=== PATIENT | female | born 1990 | race Caucasian/White ===

== ENCOUNTER 2016-07-22 19:44 | Emergency (ER) | payer OTHER ==
[2016-07-22 19:58] VITALS: BP 114/75; PULSE 76; TEMP 98.2; BMI 29.0
[2016-07-22] MEDS ORDERED: ONDANSETRON 4 MG/2 ML VIAL IVPUSH ONE (20:30)
[2016-07-22] MEDS ORDERED: SODIUM CHLORIDE 0.9% 1000 ML INFUS.BAG IV ONE (20:30)
[2016-07-22] MEDS ORDERED: ALBUTEROL SO4 2.5/IPRATROPIUM 0.5 INH SOL 3 ML VIAL.NEB. NEB ONE ×3 (20:30→20:33)
[2016-07-22] MEDS ORDERED: ONDANSETRON 4 MG/2 ML VIAL ONE (20:33)
--- NOTE | 2016-07-22 20:41 | PDOC ---
History of Present Illness - General Chief Complaint: Nausea/Vomiting Stated Complaint: NAUSEA/VOMITING History Source: Patient Exam Limitations: No Limitations - History of Present Illness Initial Comments: 07/22/16 20:35 patient is a 25-year-old female with no past medical history here with complaints of coughing, sneezing x 1 week, assoc/w body pain. Cough is productive of sputum. Today she started to have nonpleuritic, nonreproducible, upper chest pain sharp 7/10 with no aggravating or alleviating factors. States she has been unable to take a deep breath due to the pain. Denies fever, chills , sorethroat, dysuria. She has not taken any meds for the pain. LMP 06/09/16 last for 22 days. No OCP, no recent travel, no leg selling, Famx neg for IN/CVA , PE/DVT. PMHX: neg PSocHX; neg cig, etoh, durg PFamHX: non contributory ALL: NKDA GENERAL/CONSTITUTIONAL: [No fever or chills. No weakness. No weight change.] HEAD, EYES, EARS, NOSE AND THROAT: [No change in vision. No ear pain or discharge. No sore throat.] CARDIOVASCULAR: (+) chest pain or shortness of breath.] RESPIRATORY: [No cough, wheezing, or hemoptysis.] GASTROINTESTINAL: [No nausea, vomiting, diarrhea or constipation. No rectal bleeding.] GENITOURINARY: [No dysuria, frequency, or change in urination.] MUSCULOSKELETAL: [No joint or muscle swelling or pain. No neck or back pain.] SKIN AND BREASTS: [No rash or easy bruising.] NEUROLOGIC: [No headache, vertigo, loss of consciousness, or loss of sensation.] PSYCHIATRIC: [No depression or anxiety.] ENDOCRINE: [No increased thirst. No abnormal weight change.] HEMATOLOGIC/LYMPHATIC: [No anemia, easy bleeding, or history of blood clots.] ALLERGIC/IMMUNOLOGIC: [No hives or skin allergy. No latex allergy.] GENERAL: [The patient is awake, alert, and fully oriented, in no acute distress. ] HEAD: [Normal with no signs of trauma.] EYES: [Pupils equal, round and reactive to light, extraocular movements intact, sclera anicteric, conjunctiva clear.] ENT: [Ears normal, nares patent, oropharynx clear without exudates. Moist mucous membranes.] NECK: [Normal range of motion, supple without lymphadenopathy, JVD, or masses.] LUNGS: [Breath sounds equal, clear to auscultation bilaterally. No wheezes, and no crackles., chest wall nontender to palp] HEART: [Regular rate and rhythm, normal S1 and S2 without murmur, rub.] ABDOMEN: [Soft, nontender, normoactive bowel sounds. No guarding, no rebound. No masses.] EXTREMITIES: [Normal range of motion, no edema. No clubbing or cyanosis. No cords, erythema, or tenderness.] NEUROLOGICAL: [Cranial nerves II through XII grossly intact. Normal speech, normal gait.] PSYCH: [Normal mood, normal affect.] SKIN: [Warm, Dry, normal turgor, no rashes or lesions noted.] Past History - Past Medical History Allergies/Adverse Reactions: Allergies Allergy/AdvReac Type Severity Reaction Status Date / Time No Known Allergies Allergy Verified 07/22/16 19:54 Home Medications: Ambulatory Orders Albuterol Sulfate Inhaler - [Ventolin HFA Inhaler -] 2 puff IH Q4H #1 inhaler Disorders: Yes (heavy periods, ) - Reproductive History (#): 1 Para: 1 Cervical CA: No Ectopic : No Endometrial CA: No Therapeutic (s) & number: No Tubal Ligation: No Spontaneous : 0 - Immunization History Immunization Up to Date: Yes - Psycho/Social/Smoking Cessation Hx Anxiety: No Suicidal Ideation: No Smoking Status: No Smoking History: Never smoked Number of Cigarettes Smoked Daily: 0 Hx Alcohol Use: No *Physical Exam - Vital Signs Last Vital Signs Temp Pulse Resp BP Pulse Ox 98.2 F 76 18 114/75 99 07/22/16 19:55 07/22/16 19:55 07/22/16 19:55 07/22/16 19:55 07/22/16 19:55 ED Treatment Course - LABORATORY CBC & Chemistry Diagram: 07/22/16 20:50 07/22/16 20:50 Medical Decision Making - Medical Decision Making 07/22/16 20:49 Patient is a 25 year old with no pmhx c/o coughing, sneezing, body aches x 1 week and today started to have upper chest pain. Symptoms consistent with a viral illness, with chest pain wall pain. will give duonebs, labs, IVF, cxr after neg hcg re-assess Given Tylenol 975mg po for pain 07/22/16 22:20 Given tylenol still c/o pain given toradol 30mg IV labs reviewed not acute finding, cxr neg I discussed the physical exam findings, ancillary test results and final diagnoses with the patient. I answered all of the patient's questions. The patient was satisfied with the care received and felt comfortable with the discharge plan and treatment plan. The Patient agrees to follow up with the primary care physician within 24-72 hours. *DC/Admit/Observation/Transfer Diagnosis at time of Disposition: Chest wall pain Upper respiratory infection Qualifiers: URI type: unspecified viral URI Qualified Code(s): J06.9 - Acute upper respiratory infection, unspecified Diagnosis at time of Disposition: (Ruled Out): Chest pain of unknown etiology - Discharge Dispostion Disposition: HOME Condition at time of disposition: Stable - Prescriptions Prescriptions: Albuterol Sulfate Inhaler - [Ventolin HFA Inhaler -] 2 puff IH Q4H #1 inhaler - Patient Instructions Printed Discharge Instructions: DI for Viral Upper Respiratory Infection -- Adult, DI for Chest Pain Additional Instructions: Your Discharge Instructions: You must call primary care physician within 24 hours to arrange follow-up. Return to the Emergency Department with any new, persistent or worsening symptoms, for fever, chills, SOB, dizziness or any other concerning changes that may occur. Addendum entered and electronically signed by Mark Enriquez 07/23/16 04: 05: Progress Note - Progress Note Progress Note: Patient is PERC neg
[2016-07-22] MEDS ORDERED: ACETAMINOPHEN 325 MG TABLET (FP) ONE (21:02)
[2016-07-22 21:05] LABS: MCHC 32.7 g/dl (32.0-36.0); MEAN CELL VOLUME 79.3 fl (80-96); MEAN PLT VOLUME 8.2 fl (7.5-11.1); PLATELET COUNT 202 K/MM3 (134-434); WHITE BLOOD COUNT 4.5 K/mm3 (4.0-10.0)
[2016-07-22] MEDS ORDERED: ACETAMINOPHEN 325 MG TABLET (FP) PO ONE (21:06)
[2016-07-22 21:29] LABS: ALBUMIN 3.9 g/dl (3.4-5.0); ALK PHOS 75 U/L (45-117); ANION GAP 9 (8-16); BILIRUBIN,TOTAL 0.3 mg/dL (0.2-1.0); CALCIUM 9.3 mg/dL (8.5-10.1); CO2 27 mmol/L (21-32); CREATININE 0.8 mg/dL (0.55-1.02); GLUCOSE,RANDOM 102 mg/dL (74-106); SGOT/AST 38 U/L (15-37); SGPT/ALT 72 U/L (12-78); TOT PROT 7.7 g/dl (6.4-8.2)
[2016-07-22] MEDS ORDERED: KETOROLAC TROMETHAMINE 30 MG/1 ML VIAL IVPUSH PRN (22:11)
[2016-07-22] MEDS ORDERED: KETOROLAC TROMETHAMINE 30 MG/1 ML VIAL ONE (22:12)
== END 2016-07-22 22:43 | disposition home or self-care (01) ==
LOC: JER 19:44
PROC: 3E0F7GC Introduction of Other Therapeutic Substance into Respiratory Tract, Via Natural or Artificial Opening (ICD-10-PCS; principal; 2016-07-22)
PROC: 3E0F7GC Introduction of Other Therapeutic Substance into Respiratory Tract, Via Natural or Artificial Opening (ICD-10-PCS; 2016-07-22)
PROC: 3E0333Z Introduction of Anti-inflammatory into Peripheral Vein, Percutaneous Approach (ICD-10-PCS; 2016-07-22)
PROC: 3E033GC Introduction of Other Therapeutic Substance into Peripheral Vein, Percutaneous Approach (ICD-10-PCS; 2016-07-22)
DX: J06.9 Acute upper respiratory infection, unspecified (principal)
CPT/HCPCS: 36415; 71020-TC; 80053; 84702; 85027; 87804; 99283-25

== ENCOUNTER 2016-07-23 17:22 | Emergency (ER) | payer OTHER ==
[2016-07-23 17:44] VITALS: BP 117/73; PULSE 61; TEMP 98; BMI 29.0
[2016-07-23] MEDS ORDERED: ALBUTEROL SO4 2.5/IPRATROPIUM 0.5 INH SOL 3 ML VIAL.NEB. NEB ONE ×2 (18:26→18:30)
[2016-07-23] MEDS ORDERED: predniSONE 20 MG TABLET (UD) ONE (18:26)
[2016-07-23] MEDS ORDERED: predniSONE 20 MG TABLET (UD) PO ONE (18:30)
--- NOTE | 2016-07-23 18:31 | PDOC ---
History of Present Illness - General Chief Complaint: Shortness of Breath Stated Complaint: SOB/CHEST PAIN Time Seen by Provider: 07/23/16 18:30 History Source: Patient Exam Limitations: No Limitations - History of Present Illness Initial Comments: 07/23/16 18:32 Patient is return to the emergency department for continued shortness of breath , wheezing and pleuritic chest pain. States was seen here last night prescribed an albuterol inhaler and given Motrin for the chest pain but states was unable to sleep last night, shortness of breath has worsened. Patient states has fevers and chills, son was ill with upper respiratory infection last week and thinks may be the same. Influenza testing and most of the laboratory work negative taken last night. 07/23/16 18:34 07/23/16 18:35 Timing/Duration: reports: constant, getting worse Severity: reports: moderate Associated Symptoms: reports: chest pain/soreness, cough, dizziness, nasal congestion, nasal drainage, shortness of breath, wheezing. denies: fever/chills Past History - Travel Traveled outside of the country in the last 30 days: No Close contact w/someone who was outside of country & ill: No - Past Medical History Allergies/Adverse Reactions: Allergies Allergy/AdvReac Type Severity Reaction Status Date / Time No Known Allergies Allergy Verified 07/23/16 17:44 Home Medications: Ambulatory Orders Albuterol Sulfate Inhaler - [Ventolin HFA Inhaler -] 2 puff IH Q4H #1 inhaler Azithromycin [Zithromax -] 250 mg PO UTDICT #6 tab 07/23/16 Prednisone [Deltasone -] 20 mg PO BID #8 tablet 07/23/16 Disorders: Yes (heavy periods, ) - Reproductive History (#): 1 Para: 1 Cervical CA: No Ectopic : No Endometrial CA: No Therapeutic (s) & number: No Tubal Ligation: No Spontaneous : 0 - Immunization History Immunization Up to Date: Yes - Psycho/Social/Smoking Cessation Hx Anxiety: No Suicidal Ideation: No Smoking Status: No Smoking History: Never smoked Number of Cigarettes Smoked Daily: 0 Hx Alcohol Use: No Drug/Substance Use Hx: No Respiratory Specific PMHX - Complaint Specific PMHX Bronchitis: No Pneumonia: No Review of Systems - Review of Systems Able to Perform ROS?: No Is the patient limited Yoruba proficient: No Constitutional: Yes: Symptoms Reported, See HPI, Chills, Fever, Malaise HEENTM: Yes: Symptoms Reported, Nose Congestion. No: Recent change in vision, Nose Pain Respiratory: Yes: Symptoms reported, See HPI, Cough, Wheezing Integumentary: Yes: Symptoms Reported Neurological: Yes: Symptoms reported *Physical Exam - Vital Signs Last Vital Signs Temp Pulse Resp BP Pulse Ox 98.0 F 61 16 117/73 100 07/23/16 17:41 07/23/16 17:41 07/23/16 17:41 07/23/16 17:41 07/23/16 17:41 - Physical Exam General Appearance: Yes: Nourished, Appropriately Dressed, Apparent Distress, Mild Distress HEENT: positive: CAMRYN, TMs Normal (congested but landmarks easily visualized), Nasal Congestion, Rhinorrhea. negative: Pharynx Normal Neck: positive: Supple, Lymphadenopathy (R), Lymphadenopathy (L). negative: Tender Respiratory/Chest: negative: Chest Tender, Lungs Clear (tight inspiratory and expiratory breath sounds, cough provoked with deep inspiratory effort), Normal Breath Sounds, Labored Respiration, Wheezing Cardiovascular: positive: Regular Rhythm Gastrointestinal/Abdominal: positive: Normal Bowel Sounds, Soft. negative: Tender Musculoskeletal: positive: Normal Inspection Extremity: positive: Normal Capillary Refill. negative: Normal Range of Motion Integumentary: positive: Normal Color, Dry, Warm, Pale Neurologic: positive: sack sewer machine II-XII NML intact, Fully Oriented, Alert, Normal Mood/ Affect, Normal Response, Motor Strength 5/5 Progress Note - Progress Note Progress Note: Upper respiratory infection, unresolved with simple albuterol. Will add prednisone for inflammatory effects and Zithromax to treat any bacterial component. Medical Decision Making - Medical Decision Making 07/23/16 19:03 much improved after DuoNeb, 60 mg of prednisone. EKG reveals normal sinus rhythm/on his bradycardia in the high 50s with no evidence of ischemia or arrhythmia. *DC/Admit/Observation/Transfer Diagnosis at time of Disposition: Upper respiratory infection Qualifiers: URI type: unspecified URI Qualified Code(s): J06.9 - Acute upper respiratory infection, unspecified - Discharge Dispostion Disposition: HOME Condition at time of disposition: Stable Admit: No - Prescriptions Prescriptions: Prednisone [Deltasone -] 20 mg PO BID #8 tablet Azithromycin [Zithromax -] 250 mg PO UTDICT #6 tab - Patient Instructions Printed Discharge Instructions: DI for Acute Bronchitis Additional Instructions: Rest, drink lots of fluids: Teas, water, soups, Pedialyte Saltwater gargles Steamy showers/seem to face break up mucus Avoid contact with others until fevers and cough resolved Lots of handwashing and good hygiene Continue [id number] medications for symptomatic relief Tylenol or Motrin for fever and pain Continue albuterol pump's 2 puffs 4 times a day for 3 days Continue prednisone 40 mg for the next 4 days Complete Zithromax course as directed Followup with private physician in one to 2 days as needed Return to emergency department for worsened symptoms, fevers, dehydration - Post Discharge Activity Work/School Note: Back to Work
--- NOTE | 2016-07-29 10:29 | EKG ---
Test Reason : Blood Pressure : / mmHG Vent. Rate : 057 BPM Atrial Rate : 057 BPM P-R Int : 126 ms QRS Dur : 092 ms QT Int : 412 ms P-R-T Axes : 062 055 062 degrees QTc Int : 401 ms SINUS BRADYCARDIA OTHERWISE NORMAL ECG WHEN COMPARED WITH ECG OF 07-NOV-2008 17:28, NO SIGNIFICANT CHANGE WAS FOUND Confirmed by MARTÍN ARREDONDO MD ([id number]) on 07/29/2016 10:29:07 AM Referred By: Confirmed By:MARTÍN ARREDONDO MD
== END 2016-07-23 19:32 | disposition home or self-care (01) ==
LOC: JERFT 17:22
PROC: 3E0F7GC Introduction of Other Therapeutic Substance into Respiratory Tract, Via Natural or Artificial Opening (ICD-10-PCS; principal; 2016-07-23)
DX: J06.9 Acute upper respiratory infection, unspecified (principal)
CPT/HCPCS: 93005; 93010; 99281-25

== ENCOUNTER 2017-03-09 17:48 | Emergency (ER) | payer OTHER ==
[2017-03-09 17:52] VITALS: BP 123/67; PULSE 81; TEMP 98.4; BMI 29.0
[2017-03-09] MEDS ORDERED: KETOROLAC TROMETHAMINE 60 MG/2 ML VIAL IM ONE (18:40)
[2017-03-09] MEDS ORDERED: KETOROLAC TROMETHAMINE 60 MG/2 ML VIAL ONE (18:44)
--- NOTE | 2017-03-09 18:45 | PDOC ---
History of Present Illness - General Chief Complaint: Toothache Stated Complaint: TOOTH PAIN Time Seen by Provider: 03/09/17 18:19 History Source: Patient Exam Limitations: No Limitations - History of Present Illness Initial Comments: 03/09/17 18:41 Patient is a 26-year-old female, no significant medical history currently on no medication presents for evaluation of right lower third molar pain. She reports being at work pain started and noticed swelling, has an appointment for dental on Saturday. Patient is afebrile, no difficulty swallowing, no visual disturbance. Past Medical History: Denies. Allergies: No known allergies Medications: None Family History: Non-contributory Social History: Denies smoking, alcohol use, or IVDU Review of Systems GENERAL/CONSTITUTIONAL: No fever or chills. No weakness. No weight change. HEAD, EYES, EARS, NOSE AND THROAT: No change in vision. No ear pain or discharge. No sore throat. Pain to the right posterior third bottom molar. CARDIOVASCULAR: No chest pain or shortness of breath. RESPIRATORY: No cough, wheezing, or hemoptysis. GASTROINTESTINAL: No nausea, vomiting, diarrhea or constipation. No rectal bleeding. GENITOURINARY: No dysuria, frequency, or change in urination. MUSCULOSKELETAL: No joint or muscle swelling or pain. No neck or back pain. SKIN : No rash or easy bruising. Swelling to right side of face NEUROLOGIC: No headache, vertigo, loss of consciousness, or loss of sensation. HEMATOLOGIC/LYMPHATIC: No anemia, easy bleeding, or history of blood clots. No lymphadenopathy ALLERGIC/IMMUNOLOGIC: No hives or skin allergy. No latex allergy. Physical Exam: GENERAL: The patient is awake, alert, and fully oriented, in no acute distress. EYES: Pupils equal, round and reactive to light, extraocular movements intact, sclera anicteric, conjunctiva clear. ENT: Ears normal, nares patent, oropharynx clear without exudates. Moist mucous membranes. No uvula deviation. Pack to right posterior lower third molar. No visualized abscess noted. NECK: Normal range of motion, supple without lymphadenopathy, JVD, or masses. LUNGS: Breath sounds equal, clear to auscultation bilaterally. No wheezes, and no crackles. HEART: Regular rate and rhythm, normal S1 and S2 without murmur, rub or gallop. ABDOMEN: Soft, nontender, normoactive bowel sounds. No guarding, no rebound. No masses. No bruising or abrasions SKIN: Warm, Dry, normal turgor, no rashes or lesions noted. Edema to right side of face. Past History - Past Medical History Allergies/Adverse Reactions: Allergies Allergy/AdvReac Type Severity Reaction Status Date / Time No Known Allergies Allergy Verified 03/09/17 17:52 Home Medications: Ambulatory Orders Oxycodone HCl/Acetaminophen [Percocet 5-325 mg Tablet] 1 - 2 tab PO Q6H #20 tab MDD 8 03/09/17 Penicillin V Potassium [Pen Vee K -] 500 mg PO QID #40 tablet 03/09/17 Disorders: Yes (heavy periods, ) Other medical history: NONE - Reproductive History (#): 1 Para: 1 Cervical CA: No Ectopic : No Endometrial CA: No Therapeutic (s) & number: No Tubal Ligation: No Spontaneous : 0 - Immunization History Immunization Up to Date: Yes - Suicide/Smoking/Psychosocial Hx Smoking Status: No Smoking History: Never smoked Number of Cigarettes Smoked Daily: 0 Hx Alcohol Use: Yes (SOCIAL) Drug/Substance Use Hx: No *Physical Exam - Vital Signs Last Vital Signs Temp Pulse Resp BP Pulse Ox 98.4 F 81 20 123/67 99 03/09/17 17:49 03/09/17 17:49 03/09/17 17:49 03/09/17 17:49 03/09/17 17:49 Medical Decision Making - Medical Decision Making 03/09/17 19:14 Patient with impacted right third molar, Toradol given while in emergency room with good result will DC patient home on penicillin, Percocet for pain, follow- up with dental as soon as possible given information about urgent dental on [address], she verbalized understanding. Follow-up as instructed and return to emergency Department with any fever, any redness or swelling to right side of face difficulty swallowing, breathing, or any other concerns. *DC/Admit/Observation/Transfer Diagnosis at time of Disposition: Dental impaction - Discharge Dispostion Disposition: HOME Condition at time of disposition: Good - Prescriptions Prescriptions: Penicillin V Potassium [Pen Vee K -] 500 mg PO QID #40 tablet Oxycodone HCl/Acetaminophen [Percocet 5-325 mg Tablet] 1 - 2 tab PO Q6H #20 tab MDD 8 - Patient Instructions Printed Discharge Instructions: DI for Impacted Tooth Additional Instructions: Warm salt water gargles If any increased redness, fever, swelling, or signs of infection return to ER Motrin for mild pain - Post Discharge Activity Forms/Work/School Notes: Back to Work
== END 2017-03-09 19:30 | disposition home or self-care (01) ==
LOC: JERFT 17:48
PROC: 3E0233Z Introduction of Anti-inflammatory into Muscle, Percutaneous Approach (ICD-10-PCS; principal; 2017-03-09)
DX: K01.1 Impacted teeth (principal)
CPT/HCPCS: 99281-25

== ENCOUNTER 2017-04-05 20:42 | Emergency (ER) | payer OTHER ==
[2017-04-05 20:47] VITALS: BP 125/57; PULSE 69; TEMP 99; BMI 30.7
--- NOTE | 2017-04-05 21:06 | PDOC ---
History of Present Illness - General Chief Complaint: Vaginal Bleeding Stated Complaint: VAG. BLEEDING Time Seen by Provider: 04/05/17 20:53 History Source: Patient - History of Present Illness Initial Comments: 04/05/17 21:09 Patient is a 26 y.o. (1 spontaneous + 1 elective ) who presents with acute onset of vaginal bleed. Patient states she was at work when she noticed a gush of blood. Patient endorse associated abdominal cramping and denies any shortness of breath, lightheadedness or palpitations. Patient states she was evaluated at [facility] earlier this week at which time she was told she was . Surgical: C/S NKDA Social: denies cigarettes, social alcohol, denies recreational drugs PMD: None Past History - Past Medical History Allergies/Adverse Reactions: Allergies Allergy/AdvReac Type Severity Reaction Status Date / Time No Known Allergies Allergy Verified 04/05/17 20:47 Home Medications: Ambulatory Orders NK [No Known Home Medication] 04/05/17 Disorders: Yes (heavy periods, ) - Reproductive History (#): 1 Para: 1 Cervical CA: No Ectopic : No Endometrial CA: No Therapeutic (s) & number: No Tubal Ligation: No Spontaneous : 0 - Immunization History Immunization Up to Date: Yes - Suicide/Smoking/Psychosocial Hx Smoking Status: No Smoking History: Never smoked Number of Cigarettes Smoked Daily: 0 Hx Alcohol Use: Yes (SOCIAL) Drug/Substance Use Hx: No Review of Systems - Review of Systems Constitutional: No: Chills, Fever Respiratory: No: Cough, Shortness of Breath Cardiac (ROS): No: Chest Pain, Lightheadedness, Palpitations ABD/GI: Yes: Abdominal cramping. No: Constipated, Diarrhea, Nausea, Vomiting : No: Burning, Dysuria All Other Systems: Reviewed and Negative *Physical Exam - Vital Signs Last Vital Signs Temp Pulse Resp BP Pulse Ox 99.0 F 69 18 125/57 99 04/05/17 20:43 04/05/17 20:43 04/05/17 20:43 04/05/17 20:43 04/05/17 20:43 - Physical Exam General Appearance: Yes: Nourished, Appropriately Dressed Respiratory/Chest: positive: Lungs Clear, Normal Breath Sounds Cardiovascular: positive: S1, S2 Female Pelvic Exam: positive: cervical os closed, vaginal bleeding (Streaks of dark red blood observed in vaginal vault) ED Treatment Course - LABORATORY CBC & Chemistry Diagram: 04/05/17 20:51 04/05/17 20:51 Medical Decision Making - Medical Decision Making 04/05/17 21:12 Patient is a 26 y.o. female @ unknown gestation who presents with acute onset of vaginal bleed + abdominal cramping. Initial DDx is for spontaneous . PLAN: 1. CBC 2. TVUS 3. Pelvic Exam 04/06/17 00:19 B-HCG 47,494.5, consistent with 5-6 week as well as patient's LMP. Pelvic exam shows closed cervical os with a small amount of dark red blood in vaginal vault. Bedside TVUS shows IUP with no free fluid or adnexal masses. Patient awaiting TVUS and signed out to Dr. Valdivia (Resident). *DC/Admit/Observation/Transfer Diagnosis at time of Disposition: Vaginal bleeding before 22 weeks gestation
[2017-04-05 21:18] LABS: BASOPHIL 0.5 % (0-2.0); MCH 27.3 pg (25.7-33.7); MCHC 33.2 g/dl (32.0-36.0); MEAN CELL VOLUME 82.1 fl (80-96); MEAN PLT VOLUME 8.8 fl (7.5-11.1); NEUTROPHILS 65.2 % (42.8-82.8); PLATELET COUNT 277 K/MM3 (134-434); RDW 14.7 % (11.6-15.6); WHITE BLOOD COUNT 8.2 K/mm3 (4.0-10.0)
[2017-04-05 21:25] LABS: URINE APPEARANCE CLEAR; URINE BILIRUBIN NEGATIVE (NEGATIVE); URINE BLOOD 3+ (NEGATIVE); URINE COLOR STRAW; URINE GLUCOSE (UA) NEGATIVE (NEGATIVE); URINE KETONE NEGATIVE (NEGATIVE); URINE NITRITE NEGATIVE (NEGATIVE); URINE PROTEIN NEGATIVE (NEGATIVE); URINE UROBILINOGEN NEGATIVE mg/dL (0.2-1.0)
[2017-04-05] MEDS ORDERED: ACETAMINOPHEN 500 MG TABLET (FP) PO ONE (22:13)
[2017-04-05 22:21] LABS: URINE BACTERIA RARE /hpf (NONE SEEN); URINE MUCUS RARE; URINE RBC 6 /hpf (0-3); URINE WBC 3 /hpf (3-5)
[2017-04-05] MEDS ORDERED: ACETAMINOPHEN 325 MG TABLET (FP) ONE (22:21)
[2017-04-05 22:40] LABS: ALBUMIN 3.8 g/dl (3.4-5.0); ANION GAP 9 (8-16); BILIRUBIN,TOTAL 0.4 mg/dL (0.2-1.0); CALCIUM 8.9 mg/dL (8.5-10.1); CO2 23 mmol/L (21-32); CREATININE 0.8 mg/dL (0.55-1.02); GLUCOSE,RANDOM 77 mg/dL (74-106); SGOT/AST 22 U/L (15-37); SGPT/ALT 29 U/L (12-78); TOT PROT 7.4 g/dl (6.4-8.2)
[2017-04-05 22:56] LABS: ALK PHOS 67 U/L (45-117)
--- NOTE | 2017-04-05 23:50 | PDOC ---
Attending Attestation - Resident Resident Name: Jorge Bhat - HPI HPI: 04/07/17 08:53 Pt presents to the ED complaining of L sided abdominal pain, nausea and vomiting. Denies fever. History of gastric sleeve placement in [place]. - Physicial Exam PE: 04/07/17 08:55 Abdomen is diffusely tender on the left side without guarding or rebound. - Medical Decision Making 04/07/17 08:55 Pt presents to the ED complaining of abdominal pain after gastric sleeve. Abdomen is diffusely tender on the left side. Ct performed to rule out leak or obstruction, and is negative except for ovarian cyst. Patient feels improved. Will discharge home.
--- NOTE | 2017-04-06 03:07 | PDOC ---
*Physical Exam - Vital Signs Last Vital Signs Temp Pulse Resp BP Pulse Ox 99.0 F 69 18 125/57 99 04/05/17 20:43 04/05/17 20:43 04/05/17 20:43 04/05/17 20:43 04/05/17 20:43 - Physical Exam Comments: 04/06/17 03:08 General Appearance: Nourished. No Apparent Distress HEENT: EOMI, CAMRYN. No Pharyngeal Erythema, Tonsillar Exudate, Tonsillar Erythema Neck: No Cervical Lymphadenopathy Respiratory/Chest: Lungs Clear, Normal Breath Sounds. No Crackles, Rales, Rhonchi, Wheezing Cardiovascular: Regular Rhythm, Regular Rate. No Murmur, Gallops, Rubs Gastrointestinal/Abdominal: Normal Bowel Sounds, Soft. No Guarding, Rebound, Tenderness Musculoskeletal: No CVA Tenderness Extremity: Normal Capillary Refill Integumentary: Normal Color, Dry, Warm Neurologic: Fully Oriented, Alert, Normal Mood/Affect, Normal Response, ED Treatment Course - LABORATORY CBC & Chemistry Diagram: 04/05/17 20:51 04/05/17 20:51 - ADDITIONAL ORDERS Additional order review: Laboratory Results 04/05/17 04/05/17 04/05/17 20:51 20:51 20:51 Sodium 135 L Potassium 4.1 Chloride 103 Carbon Dioxide 23 Anion Gap 9 BUN 12 D Creatinine 0.8 Creat Clearance w eGFR > 60 Random Glucose 77 D Calcium 8.9 Total Bilirubin 0.4 D AST 22 D ALT 29 D Alkaline Phosphatase 67 Total Protein 7.4 Albumin 3.8 Beta HCG, Quant 50175.5 Urine Color Straw Urine Appearance Clear Urine pH 6.0 Urine Protein Negative Urine Glucose (UA) Negative Urine Ketones Negative Urine Blood 3+ H Urine Nitrite Negative Urine Bilirubin Negative Urine Urobilinogen Negative Urine RBC 6 Urine WBC 3 Ur Epithelial Cells Rare Urine Bacteria Rare Urine Mucus Rare Blood Type B POSITIVE Antibody Screen Negative 04/05/17 20:51 RBC 4.86 MCV 82.1 MCHC 33.2 RDW 14.7 MPV 8.8 Neutrophils % 65.2 Lymphocytes % 24.1 D Monocytes % 8.2 Eosinophils % 2.0 Basophils % 0.5 - Medications Given in the ED: ED Medications Discontinued Medications Generic Name Dose Route Start Last Admin Trade Name Freq PRN Reason Stop Dose Admin Acetaminophen 1,000 mg 04/05/17 22:13 04/05/17 22:23 Tylenol - PO 04/05/17 22:14 1,000 mg ONCE ONE Administration Progress Note - Progress Note Progress Note: Received sign out from Dr. Bush. The patient is a 26 year old 6 week female who presented for concerns of vaginal bleeding. Work up has been negative thus far. Pending official US read for intrauterine . Medical Decision Making - Medical Decision Making 04/06/17 03:09 Official US read demonstrates a viable 6 week 5 day old healthy fetus. We are comfortable discharging the patient home at this time with OB follow-up within the next 4-5 days. We discussed the results and the plan with the patient who voiced understanding and is agreeable with the plan. *DC/Admit/Observation/Transfer Diagnosis at time of Disposition: Vaginal bleeding before 22 weeks gestation - Discharge Dispostion Disposition: HOME Condition at time of disposition: Good Admit: No - Patient Instructions Printed Discharge Instructions: DI for Vaginal Bleeding During Additional Instructions: Please return to the ER if you experience concerning or worsening symptoms including worsening bleeding or abdominal cramping. Please call to schedule an earlier follow up appointment with your machine umbrella tipper to discuss your ER visit. You have been provided with a copy of your ultrasound results that you should take to your appointment.
[2017-04-06 10:12] LABS: URINE LEUK ESTERASE Negative (NEGATIVE)
== END 2017-04-06 03:19 | disposition home or self-care (01) ==
LOC: JER 20:42
DX: O20.8 Other hemorrhage in early pregnancy (principal); Z3A.01 Less than 8 weeks gestation of pregnancy
CPT/HCPCS: 36415; 76817-TC; 80053; 81003; 81015; 84702; 85025; 86850; 86900; 86901; 99282-25

== ENCOUNTER 2017-06-14 21:53 | Emergency (ER) | payer OTHER ==
[2017-06-14 22:00] VITALS: BP 115/75; PULSE 66; TEMP 98.2; BMI 29.7
--- NOTE | 2017-06-14 22:19 | PDOC ---
History of Present Illness - General Chief Complaint: Back Pain Stated Complaint: BACK PAIN Time Seen by Provider: 06/14/17 22:11 History Source: Patient Exam Limitations: No Limitations - History of Present Illness Initial Comments: 06/14/17 22:11 CHIEF COMPLAINT: [Right flank pain] HISTORY OF PRESENT ILLNESS:[26 ]-year-old [female with no significant medical history, presents to the ER with reproducable with right flank pain which started yesterday. Describes pain as stabbing, constant with intermittent sharp pains. 01/24. Took 800 mg of Motrin at 6 pm with no resolve of symptoms. ],[ No fever, denies injury or lifting heavy objects, no hisotry of renal colic. Nonradiating pain, no neurosensory deficits, no bowel or bladder difficulty incontinence or urinary retention, no saddle anesthesia, no footdrop. No history of IVDU or history of cancer. No urinary symptoms. LMP: Current] REVIEW OF SYSTEMS: GENERAL: Afebrile, denies any weakness RESPIRATORY: No cough, wheezing, or hemoptysis. CARDIAC: No chest pain or shortness of breath MUSCULOSKELETAL: Pain to right flank. SKIN : No erythema, no bruising, no deformity. GI/: Denies any abdominal pain, no urinary difficulty, incontinence or urinary retention. RECTAL: Denies any difficulty this A.m. NEUROLOGICAL: Denies any numbness or tingling. No neurosensory deficits. PHYSICAL EXAM: GENERAL: The patient is awake, alert, and fully oriented, in no acute distress. RESPIRATORY: Lungs clear bilaterally, no rhonchi wheezes or crackles CARDIAC: S1-S2 audible, no murmur rub or gallop MUSCULOSKELETAL: Pain to right flank, nonradiating, no tingling or sensory deficit. Less than 2 second cap refill, +4 popliteal and pedal pulses. No direct CVA tenderness, pain just inferior to CVA on the right. GI/: Abdomen soft, nontender, nondistended. No rebound tenderness. No masses palpable. MUSCULOSKELETAL: No spinal point tenderness. Normal reflexive and no deficits to sensation or strength. RECTAL: [Deferred patient with no neurological findings] SKIN: Warm, Dry, normal turgor, no erythema, no edema no bruising. 06/14/17 22:59 06/16/17 10:30 Past History - Past Medical History Allergies/Adverse Reactions: Allergies Allergy/AdvReac Type Severity Reaction Status Date / Time No Known Allergies Allergy Verified 06/15/17 01:34 Home Medications: Ambulatory Orders Ketorolac Tromethamine [Toradol] 10 mg PO TID #10 tablet 06/15/17 Disorders: Yes (heavy periods, ) - Reproductive History (#): 1 Para: 1 Cervical CA: No Ectopic : No Endometrial CA: No Therapeutic (s) & number: No Tubal Ligation: No Spontaneous : 0 - Immunization History Immunization Up to Date: Yes - Suicide/Smoking/Psychosocial Hx Smoking Status: No Smoking History: Never smoked Number of Cigarettes Smoked Daily: 0 Hx Alcohol Use: Yes (SOCIAL) Drug/Substance Use Hx: No *Physical Exam - Vital Signs Last Vital Signs Temp Pulse Resp BP Pulse Ox 98.2 F 66 20 115/75 100 06/14/17 21:57 06/14/17 21:57 06/14/17 21:57 06/14/17 21:57 06/14/17 21:57 Medical Decision Making - Medical Decision Making 06/14/17 22:44 A/P: Patient here for evaluation of right flank pain sudden onset denies any trauma or injury. I have sent urinalysis, urine and urine culture. Patient was initially triaged to [facility]. After review of the history of present illness and physical examination by Nurse Practitioner, the patient was transferred to the main ED because area is closing awaiting results, The patient is medically stable for transfer. Case discussed with Dr. Lindsey *DC/Admit/Observation/Transfer Diagnosis at time of Disposition: Flank pain - Discharge Dispostion Disposition: HOME Condition at time of disposition: Stable - Prescriptions Prescriptions: Ketorolac Tromethamine [Toradol] 10 mg PO TID #10 tablet - Referrals Referrals: Harrison Claros MD [Staff Physician] - Igor Panchal MD [Staff Physician] - - Patient Instructions Printed Discharge Instructions: DI for Flank Pain Additional Instructions: Please follow-up with your primary care physician or Dr. Encarnacion Follow with the orthopedic surgeon: Dr. Claros Tylenol or Motrin as needed for pain Prescription: Toradol 10 mg one tablet by mouth twice a day only as needed for severe pain. Do not take Motrin while you're taking Toradol Return back to the emergency department for severe/persistent or worsening symptoms - Post Discharge Activity Forms/Work/School Notes: Back to Work
[2017-06-14] MEDS ORDERED: ONDANSETRON 4 MG TABLET PO ONE (22:30)
[2017-06-14] MEDS ORDERED: ONDANSETRON *ODT* 4 MG TABLET ONE (22:35)
--- NOTE | 2017-06-14 22:56 | PDOC ---
*Physical Exam - Vital Signs Last Vital Signs Temp Pulse Resp BP Pulse Ox 98.2 F 66 20 115/75 100 06/14/17 21:57 06/14/17 21:57 06/14/17 21:57 06/14/17 21:57 06/14/17 21:57 <Juan Lindsey - Last Filed: 06/14/17 22:56> - Vital Signs Last Vital Signs Temp Pulse Resp BP Pulse Ox 98.2 F 66 20 115/75 100 06/14/17 21:57 06/14/17 21:57 06/14/17 21:57 06/14/17 21:57 06/14/17 21:57 <Omar Guo - Last Filed: 06/15/17 01:10> ED Treatment Course - Medications Given in the ED: ED Medications Discontinued Medications Generic Name Dose Route Start Last Admin Trade Name Freq PRN Reason Stop Dose Admin Ondansetron HCl 4 mg 06/14/17 22:30 06/14/17 22:36 Zofran - PO 06/14/17 22:31 4 mg ONCE ONE Administration Oxycodone/Acetaminophen 1 combo 06/14/17 22:30 06/14/17 22:52 Percocet 5/325 - PO 06/14/17 22:31 1 combo ONCE ONE Administration <Juan Lindsey - Last Filed: 06/14/17 22:56> - Medications Given in the ED: ED Medications Discontinued Medications Generic Name Dose Route Start Last Admin Trade Name Freq PRN Reason Stop Dose Admin Ondansetron HCl 4 mg 06/14/17 22:30 06/14/17 22:36 Zofran - PO 06/14/17 22:31 4 mg ONCE ONE Administration Oxycodone/Acetaminophen 1 combo 06/14/17 22:30 06/14/17 22:52 Percocet 5/325 - PO 06/14/17 22:31 1 combo ONCE ONE Administration <Omar Guo - Last Filed: 06/15/17 01:10> Medical Decision Making - Medical Decision Making 06/15/17 01:10 Further care of this patient endorsed to ROSEMARIE Fraga. <Omar Guo - Last Filed: 06/15/17 01:10> *DC/Admit/Observation/Transfer - Attestations Physician Attestion: 06/14/17 22:56 I, Dr. Juan Lindsey, attest that this document has been prepared under my direction and personally reviewed by me in its entirety. I further attest, that it accurately reflects all work, treatment, procedures and medical decision -making performed by me. <Juan Lindsey - Last Filed: 06/14/17 22:56> <Omar Guo - Last Filed: 06/15/17 01:10> - Referrals Referrals: Juan Lindsey MD [Primary Care Provider] - - Patient Instructions - Post Discharge Activity
[2017-06-15 01:14] LABS: URINE APPEARANCE TURBID; URINE BILIRUBIN NEGATIVE (NEGATIVE); URINE BLOOD 3+ (NEGATIVE); URINE COLOR YELLOW; URINE GLUCOSE (UA) NEGATIVE (NEGATIVE); URINE KETONE TRACE (NEGATIVE); URINE LEUK ESTERASE TRACE (NEGATIVE); URINE NITRITE NEGATIVE (NEGATIVE)
[2017-06-15 01:19] LABS: URINE PROTEIN 2+ (NEGATIVE)
[2017-06-15 01:21] LABS: EPI CELLS RARE /HPF (FEW); URINE HYALINE CAST 27 /lpf; URINE MUCUS MANY; YEAST FEW
[2017-06-15] MEDS ORDERED: KETOROLAC TROMETHAMINE 60 MG/2 ML VIAL IM ONE (02:09)
[2017-06-15] MEDS ORDERED: KETOROLAC TROMETHAMINE 60 MG/2 ML VIAL ONE (02:11)
--- NOTE | 2017-06-15 02:44 | PDOC ---
History of Present Illness - General Chief Complaint: Back Pain Stated Complaint: BACK PAIN Time Seen by Provider: 06/14/17 22:11 History Source: Patient Exam Limitations: No Limitations - History of Present Illness Initial Comments: 06/15/17 02:39 26-year-old female without any medical history presents to the emergency department complaining of right-sided flank pain. HEENT is described as 4/10 dull nonradiating intermittent discomfort without fever, chills, nausea/vomiting , chest pain, shortness of breath, abdominal pains, urinary symptoms: Frequency/ urgency/hesitancy, hematuria. Patient denies any injuries or history of renal colic. The pain is alleviated with rest and exacerbated on certain moving positions. LMP: presently Patient states she was given a Percocet earlier today she does not help the pain. I had ordered Toradol 60 mg IM which alleviated a lot of the pain. Patient refuses CT scan. Patient insists on going home. Patient keeps saying her Wrists in the ambulance bay and wishes to leave. Patient was informed to return back to the emergency department for severe/ persistent or worsening symptoms. Patient agrees with the plan. Past History - Past Medical History Allergies/Adverse Reactions: Allergies Allergy/AdvReac Type Severity Reaction Status Date / Time No Known Allergies Allergy Verified 06/15/17 01:34 Home Medications: Ambulatory Orders Ketorolac Tromethamine [Toradol] 10 mg PO TID #10 tablet 06/15/17 COPD: No Disorders: Yes (heavy periods, ) - Reproductive History (#): 1 Para: 1 Cervical CA: No Ectopic : No Endometrial CA: No Therapeutic (s) & number: No Tubal Ligation: No Spontaneous : 0 - Immunization History Immunization Up to Date: Yes - Suicide/Smoking/Psychosocial Hx Smoking Status: No Smoking History: Never smoked Number of Cigarettes Smoked Daily: 0 Information on smoking cessation initiated: No Hx Alcohol Use: Yes (SOCIAL) Drug/Substance Use Hx: No Substance Use Type: None Review of Systems - Review of Systems Able to Perform ROS?: Yes Comments:: 06/15/17 02:41 CONSTITUTIONAL: Absent: fever, chills, diaphoresis, generalized weakness, malaise, loss of appetite HEENT: Absent: rhinorrhea, nasal congestion, throat pain, throat swelling, difficulty swallowing, mouth swelling, ear pain, eye pain, visual Changes CARDIOVASCULAR: Absent: chest pain, loss of consciousness, palpitations, irregular heart rate, peripheral edema RESPIRATORY: Absent: cough, shortness of breath, dyspnea with exertion, orthopnea, wheezing, stridor, hemoptysis GASTROINTESTINAL: Absent: abdominal pain, abdominal distension, nausea, vomiting, diarrhea, constipation, melena, hematochezia GENITOURINARY: +RIGHT FLANK PAIN Absent: dysuria, frequency, urgency, hesitancy, hematuria, genital pain MUSCULOSKELETAL: Absent: myalgia, arthralgia, joint swelling SKIN: Absent: rash, itching, pallor HEMATOLOGIC/IMMUNOLOGIC: Absent: easy bleeding, easy bruising, lymphadenopathy, frequent infections ENDOCRINE: Absent: unexplained weight gain, unexplained weight loss, heat intolerance, cold intolerance NEUROLOGIC: Absent: headache, focal weakness or paresthesias, dizziness, unsteady gait, seizure, mental status changes, bladder or bowel incontinence PSYCHIATRIC: Absent: anxiety, depression, suicidal or homicidal ideation, hallucinations. Is the patient limited Divehi proficient: No *Physical Exam - Vital Signs Last Vital Signs Temp Pulse Resp BP Pulse Ox 98.2 F 66 20 115/75 100 06/14/17 21:57 06/14/17 21:57 06/14/17 21:57 06/14/17 21:57 06/14/17 21:57 - Physical Exam Comments: 06/15/17 02:42 GENERAL: Well developed, well nourished. Awake and alert. No acute distress. HEENT: Normocephalic, atraumatic. PERRLA, EOMI. No conjunctival pallor. Sclera are non- icteric. Moist mucous membranes. Oropharynx is clear. NECK: Supple. Full ROM. No JVD. Carotid pulses 2+ and symmetric, without bruits. No thyromegaly. No lymphadenopathy. CARDIOVASCULAR: Regular rate and rhythm. No murmurs, rubs, or gallops. Distal pulses are 2+ and symmetric. PULMONARY: No evidence of respiratory distress. Lungs clear to auscultation bilaterally. No wheezing, rales or rhonchi. ABDOMINAL: Soft. Non-tender. Non-distended. No rebound or guarding. No organomegaly. Normoactive bowel sounds. MUSCULOSKELETAL Patient adamantly denies CVA tenderness. Patient states the pain is inside her muscles Normal range of motion at all joints. No bony deformities or tenderness. No CVA tenderness. EXTREMITIES: No cyanosis. No clubbing. No edema. No calf tenderness. SKIN: Warm and dry. Normal capillary refill. No rashes. No jaundice. NEUROLOGICAL: Alert, awake, appropriate. Cranial nerves 2-12 intact. No deficits to light touch and temperature in face, upper extremities and lower extremities. No motor deficits in the in face, upper extremities and lower extremities. Normoreflexic in the upper and lower extremities. Normal speech. Toes are down- going bilaterally. Gait is normal without ataxia. PSYCHIATRIC: Cooperative. Good eye contact. Appropriate mood and affect. ED Treatment Course - ADDITIONAL ORDERS Additional order review: Laboratory Results 06/14/17 06/14/17 22:29 22:29 Urine Color Yellow Urine Appearance Turbid Urine pH 5.0 Ur Specific Greer 1.031 Urine Protein 2+ H Urine Glucose (UA) Negative Urine Ketones Trace H Urine Blood 3+ H Urine Nitrite Negative Urine Bilirubin Negative Urine Urobilinogen 2.0 H Urine WBC (Auto) 158 Urine RBC (Auto) 910 Ur Epithelial Cells Rare Hyaline Casts 27 Urine Mucus Many Urine Yeast Few Urine HCG, Qual Negative - Medications Given in the ED: ED Medications Discontinued Medications Generic Name Dose Route Start Last Admin Trade Name Freq PRN Reason Stop Dose Admin Ketorolac Tromethamine 60 mg 06/15/17 02:09 06/15/17 02:15 Toradol Injection - IM 06/15/17 02:10 60 mg ONCE ONE Administration Ondansetron HCl 4 mg 06/14/17 22:30 06/14/17 22:36 Zofran - PO 06/14/17 22:31 4 mg ONCE ONE Administration Oxycodone/Acetaminophen 1 combo 06/14/17 22:30 06/14/17 22:52 Percocet 5/325 - PO 06/14/17 22:31 1 combo ONCE ONE Administration *DC/Admit/Observation/Transfer Diagnosis at time of Disposition: Flank pain - Discharge Dispostion Disposition: HOME Condition at time of disposition: Stable Admit: No - Prescriptions Prescriptions: Ketorolac Tromethamine [Toradol] 10 mg PO TID #10 tablet - Referrals Referrals: Harrison Claros MD [Staff Physician] - Igor Panchal MD [Staff Physician] - - Patient Instructions Printed Discharge Instructions: DI for Flank Pain Additional Instructions: Please follow-up with your primary care physician or Dr. Encarnacion Follow with the orthopedic surgeon: Dr. Claros Tylenol or Motrin as needed for pain Prescription: Toradol 10 mg one tablet by mouth twice a day only as needed for severe pain. Do not take Motrin while you're taking Toradol Return back to the emergency department for severe/persistent or worsening symptoms - Post Discharge Activity Forms/Work/School Notes: Back to Work
== END 2017-06-15 02:50 | disposition home or self-care (01) ==
LOC: SUPCPDRO 21:53 → JER 21:53 → JERFT 21:53 → JER 06-15 02:50
PROC: 3E0233Z Introduction of Anti-inflammatory into Muscle, Percutaneous Approach (ICD-10-PCS; principal; 2017-06-14)
DX: R10.31 Right lower quadrant pain (principal)
CPT/HCPCS: 81003; 81015; 84703; 87086; 99283-25

== ENCOUNTER 2018-03-25 11:32 | Emergency (ER) | payer OTHER ==
[2018-03-25 11:54] VITALS: BP 113/69; PULSE 69; TEMP 99; BMI 29.0
--- NOTE | 2018-03-25 13:05 | PDOC ---
History of Present Illness - General Chief Complaint: Ear Problem Stated Complaint: EARS/CAN'T HEAR Time Seen by Provider: 03/25/18 12:03 - History of Present Illness Initial Comments: 27-year-old female without comorbidities presents for evaluation of bilateral ear congestion and cerumen impaction. She states this happened to her multiple times in the past she cannot get an ear nose and throat evaluation this week. Congestion is been going on for the last 2 days 03/25/18 13:03 Past History - Past Medical History Allergies/Adverse Reactions: Allergies Allergy/AdvReac Type Severity Reaction Status Date / Time No Known Allergies Allergy Verified 03/25/18 11:51 COPD: No Disorders: Yes (heavy periods, ) - Reproductive History (#): 1 Para: 1 Cervical CA: No Ectopic : No Endometrial CA: No Therapeutic (s) & number: No Tubal Ligation: No Spontaneous : 0 - Immunization History Immunization Up to Date: Yes - Suicide/Smoking/Psychosocial Hx Smoking Status: No Smoking History: Never smoked Number of Cigarettes Smoked Daily: 0 Hx Alcohol Use: Yes (SOCIAL) Drug/Substance Use Hx: No Substance Use Type: None Review of Systems - Review of Systems HEENTM: Yes: See HPI, Ear Pain All Other Systems: Reviewed and Negative *Physical Exam - Vital Signs Last Vital Signs Temp Pulse Resp BP Pulse Ox 99.0 F 69 18 113/69 99 03/25/18 11:52 03/25/18 11:52 03/25/18 11:52 03/25/18 11:52 03/25/18 11:52 - Physical Exam Comments: HEAD: NC/AT EYES: Conjuntiva clear Ears: Bilateral cerumen impaction tympanic membranes not visualized NOSE: No d/c THROAT: Moist mucous membrances, oral pharanx clear, uvula midline NECK: Supple without adenopathy CARDIAC: S1 S2 LUNGS: CTA Full and Equal breath sounds ABDOMEN: Soft NT ND MS: Full ROM in all joints without edema NEUROLOGIC: No gross sensory or motor deficits, NVID SKIN: Normal color and temperature no lesions or rashes 03/25/18 13:04 Medical Decision Making - Medical Decision Making 03/25/18 13:04 Warm water and peroxide solution [id number] was used to irrigate patient's ears after irrigation tympanic membrane was well-visualized canals were normal *DC/Admit/Observation/Transfer Diagnosis at time of Disposition: Cerumen impaction - Discharge Dispostion Disposition: HOME Condition at time of disposition: Stable Decision to Admit order: No - Referrals Referrals: Faisal Sanchez MD [Staff Physician] - - Patient Instructions Printed Discharge Instructions: DI for Cerumen Impaction, Cerumen Impaction Additional Instructions: Return to the emergency room should symptoms worsen or go unresolved. Please follow-up with your nose and throat for further evaluation and treatment options in 2-3 days. - Post Discharge Activity
== END 2018-03-25 13:11 | disposition home or self-care (01) ==
LOC: JERFT 11:32
PROC: 3E1B78Z Irrigation of Ear using Irrigating Substance, Via Natural or Artificial Opening (ICD-10-PCS; principal; 2018-03-25)
PROC: 3E1B78Z Irrigation of Ear using Irrigating Substance, Via Natural or Artificial Opening (ICD-10-PCS; 2018-03-25)
DX: H61.23 Impacted cerumen, bilateral (principal)
CPT/HCPCS: 99281-25

== ENCOUNTER 2018-08-21 09:13 | Emergency (ER) | payer OTHER ==
[2018-08-21 09:23] VITALS: BMI 31.9
--- NOTE | 2018-08-21 09:32 | PDOC ---
History of Present Illness - General Chief Complaint: Shortness of Breath Stated Complaint: S.O.B. Time Seen by Provider: 08/21/18 09:31 - History of Present Illness Initial Comments: 08/21/18 09:32 28 yo female 34 weeks with no significant PMH presents with a complaint of SOB which began upon awakening this morning. She states the SOB is present at rest and is much worse with exertion and that she is only able to stand and walk for a few seconds without beocoming SOB. She endorses feeling warm yesterday but denies any true fevers, chills, chest pain, Abdominal pain, Urinary symptoms, Calf tenderness/swelling/erythema. Of note she states she has had similar episodes of SOB earlier in however they were very short lived and less sever than the current episode. She denies any history of clotting/coagulation disorders in her or her family. She denies any previous clots, and she denies any prior complications in this or her prior . Past History - Past Medical History Allergies/Adverse Reactions: Allergies Allergy/AdvReac Type Severity Reaction Status Date / Time No Known Allergies Allergy Verified 08/21/18 09:20 Home Medications: Ambulatory Orders Vit 108/Iron/Folic AC [ One Tablet] 1 each PO DAILY 08/21/18 COPD: No Disorders: Yes (heavy periods, ) - Reproductive History (#): 1 Para: 1 Cervical CA: No Ectopic : No Endometrial CA: No Therapeutic (s) & number: No Tubal Ligation: No Spontaneous : 0 - Immunization History Immunization Up to Date: Yes - Suicide/Smoking/Psychosocial Hx Smoking Status: No Smoking History: Never smoked Number of Cigarettes Smoked Daily: 0 Hx Alcohol Use: No Drug/Substance Use Hx: No Substance Use Type: None Review of Systems - Review of Systems Able to Perform ROS?: Yes Constitutional: No: Chills, Fever HEENTM: No: Blurred Vision Respiratory: Yes: Shortness of Breath, SOB with Exertion, SOB at Rest. No: Cough, Orthopnea, Stridor, Wheezing, Productive cough, Hemoptysis Cardiac (ROS): No: Chest Pain, Edema, Chest Tightness ABD/GI: No: Constipated, Diarrhea, Nausea, Vomiting : No: Burning, Dysuria, Discharge Musculoskeletal: Yes: Back Pain Neurological: No: Headache, Weakness *Physical Exam - Vital Signs Last Vital Signs Temp Pulse Resp BP Pulse Ox 98.3 F 101 H 20 119/80 98 08/21/18 09:20 08/21/18 09:20 08/21/18 09:20 08/21/18 09:20 08/21/18 09:20 - Physical Exam Comments: 08/21/18 09:32 GEN: A&O, no acute distress HEENT: moist mucus membranes NECK: supple, no lymphadenopathy HEART: Tachycardic, no murmur noted LUNGS: Tachypnic, otherwise CTA b/l, no wheezes or crackles noted ABDOMEN: Soft, nontender, consistent with stated gestational age EXTREMITIES: no calf tenderness/edema/erythema Moderate Sedation - Procedure Monitoring Vital Signs: Procedure Monitoring Vital Signs Temperature 98.3 F 08/21/18 09:20 Pulse Rate 101 H 08/21/18 09:20 Respiratory Rate 20 08/21/18 09:20 Blood Pressure 119/80 08/21/18 09:20 O2 Sat by Pulse Oximetry (%) 98 08/21/18 09:20 ED Treatment Course - LABORATORY CBC & Chemistry Diagram: 08/21/18 10:03 08/21/18 10:03 Medical Decision Making - Medical Decision Making 08/21/18 09:53 28 yo 34 wk female presents with 1 day SOB at rest and worse with exertion. Denies hx of clots or clotting disorder, or calf tenderness/erythema/ edema. CBC, CMP, D-dimer, Coags b/l LE Duplex ordered and will reassess 08/21/18 14:34 CBC, CMP Coags wnl, D-dimer elevated Risks and benefits of CTA discussed with patient who agreed to undergo CTA chest. CTA negative for any PE or pulmonary pathology. Albuterol Nebulizer given without good relief. Saturation has remained stable throughout ED visit. At this point pt is stable for discharge as PE/Cardiac/Pulmonary effusion ruled out. Pt should follow up with OB within one week for further evaluation and management. *DC/Admit/Observation/Transfer Diagnosis at time of Disposition: SOB (shortness of breath) - Discharge Dispostion Disposition: HOME Condition at time of disposition: Stable Decision to Admit order: No - Referrals Referrals: Lexi Blackwell CNM [Certified Nurse [facility]] - - Patient Instructions Printed Discharge Instructions: DI for Shortness of Breath Additional Instructions: You were seen in the emergency department for shortness of breath. Your lab work was normal. After full discussion you agreed that it was best to do a CT scan of your chest with contrast to rule out a clot in your lungs which could have been causing your difficulty breathing. The CT scan did not show any concerning findings. You were given a breathing treatment while you were here. If your symptoms worsen, you should be seen by your doctor or return to the emergency department. You should follow up with your OB within one week. - Post Discharge Activity
[2018-08-21] MEDS ORDERED: LACTATED RINGERS SOLUTION 1000 ML INFUS.BAG IV ONE (09:56)
[2018-08-21 10:42] LABS: BASO % 0.2 % (0-2.0); EOS % 0.7 % (0-4.5); HEMATOCRIT 35.5 % (32.4-45.2); HEMOGLOBIN 12.4 GM/dL (10.7-15.3); MCH 29.4 pg (25.7-33.7); MCHC 34.9 g/dl (32.0-36.0); MEAN CELL VOLUME 84.2 fl (80-96); MEAN PLT VOLUME 8.2 fl (7.5-11.1); MONO % 7.7 % (3.8-10.2); NEUT % 76.4 % (42.8-82.8); PLATELET COUNT 219 K/MM3 (134-434); RBC 4.21 M/mm3 (3.60-5.2); RDW 14.9 % (11.6-15.6); WHITE BLOOD COUNT 9.7 K/mm3 (4.0-10.0)
[2018-08-21 11:06] LABS: INR 1.06 (0.83-1.09); PROTHROMBIN TIME (PATIENT) 12.5 SEC (9.7-13.0)
[2018-08-21 11:11] LABS: ALBUMIN 2.7 g/dl (3.4-5.0); ALK PHOS 113 U/L (45-117); ANION GAP 10 MMOL/L (8-16); BILIRUBIN,TOTAL 0.4 mg/dL (0.2-1); BLOOD UREA NITROGEN 6 mg/dL (7-18); CALCIUM 8.5 mg/dL (8.5-10.1); CHLORIDE 107 mmol/L (98-107); CO2 22 mmol/L (21-32); CREATININE 0.5 mg/dL (0.55-1.3); GLUCOSE,RANDOM 82 mg/dL (74-106); POTASSIUM 3.8 mmol/L (3.5-5.1); SGOT/AST 9 U/L (15-37); SGPT/ALT 12 U/L (13-61); SODIUM 140 mmol/L (136-145); TOT PROT 6.4 g/dl (6.4-8.2)
[2018-08-21] MEDS ORDERED: ALBUTEROL SO4 0.083% IH SOL 2.5 MG/3 ML VIAL.NEB. NEB ONE ×2 (14:06→14:21)
[2018-08-21 16:49] VITALS: BP 120/71; PULSE 136; TEMP 98.2
== END 2018-08-21 16:40 | disposition home or self-care (01) ==
LOC: JER 09:13
PROC: 3E0F7GC Introduction of Other Therapeutic Substance into Respiratory Tract, Via Natural or Artificial Opening (ICD-10-PCS; principal; 2018-08-21)
DX: O26.893 Other specified pregnancy related conditions, third trimester (principal)
CPT/HCPCS: 36415; 71275-TC; 80053; 85025; 85379; 85610; 93970-TC; 99282-25

== ENCOUNTER 2018-09-24 14:05 | Inpatient (IN) | payer OTHER ==
[~2018-09-24 14:05] MED LIST: CITRIC ACID/SODIUM CITRATE 30 ML UNIT-DOSE CUP PO ONE; ELECTROLYTE-148 SOLN 1,000 ML IV SCH
[2018-09-24] MEDS ORDERED: ELECTROLYTE-148 SOLN 1,000 ML IV SCH ×2 (14:35→15:15)
[2018-09-24 14:51] VITALS: BMI 34.2
[2018-09-24] MEDS ORDERED: CITRIC ACID/SODIUM CITRATE 30 ML UNIT-DOSE CUP PO ONE (15:12)
--- NOTE | 2018-09-24 15:36 | HP ---
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: No: Alzheimer's, CVA, Dementia, Migraine, Multiple Sclerosis, Peripheral Neuropathy, Parkinson's, Seizure, Syncope, TIA, Vertigo, Other ...: 4 ...Para: 1 ...Term: 1 ...: 0 ...Spon : 1 ...Induced : 1 ...Multiple Gestation: 0 ...EDC by [facility]: 10/01/18 Heme/Onc: Yes: Anemia Infectious Disease: No: AIDS, C-Diff, Herpes Zoster, HIV, MRSA, STD's, Tuberculosis, VREF, Other Psych: No: Addictions, Anxiety, Bipolar, Depression, Panic, Psychosis, Schizophrenia, Other Musculoskeletal: No: Bursitis, Chronic low back pain, Hemiparesis, Hemiplegia, Osteoarthritis, Paraplegia, Other Rheumatology: No: Fibromyalgia, Gout, Lupus, Rheumatoid Arthritis, Sarcoidosis, Vasculitis, Other ENT: No: Allergic Rhinitis, Sinusitis, Other - Past Surgical History Past Surgical History: Yes: Hx Myomectomy: No Hx Transabdominal Cerclage: No - Smoking History Smoking history: Never smoked Have you smoked in the past 12 months: No Aproximately how many cigarettes per day: 0 - Alcohol/Substance Use Hx Alcohol Use: No History of Substance Use: reports: None - Social History Usual Living Arrangement: Yes: Alone ADL: Independent History of Recent Travel: No Home Medications - Allergies Allergies/Adverse Reactions: Allergies Allergy/AdvReac Type Severity Reaction Status Date / Time No Known Allergies Allergy Verified 09/24/18 14:52 - Home Medications Home Medications: Ambulatory Orders Vit 108/Iron/Folic AC [ One Tablet] 1 each PO DAILY 08/21/18 Review of Systems - Review of Systems Constitutional: reports: Malaise Cardiovascular: denies: No Symptoms, Chest Pain, Edema, Palpitations, Shortness of Breath, Other Respiratory: denies: No Symptoms, Cough, Exercise Intolerance, Hemoptysis, Orthopnea, PND, Snoring, SOB, SOB on Exertion, Wheezing, Other Physical Exam - Maternity Vital Signs: Vital Signs Temperature 98.2 F 04/10/19 14:20 Pulse Rate 114 H 09/24/18 14:20 Respiratory Rate 20 09/24/18 14:20 Blood Pressure 119/85 09/24/18 14:20 O2 Sat by Pulse Oximetry (%) Constitutional: Yes: Well Nourished, No Distress, Calm - Abdominal Exam/OB Number of Fetuses: Single Presentation: Vertex Contractions: No Category: I Accelerations: Non-Uniform Decelerations: Variable - Vaginal Exam/OB Vaginal Bleediing: No Amniotic Membrane Status: Intact - Physical Exam Edema: No Problem List - Problems (1) H/O: Code(s): Z98.891 - HISTORY OF UTERINE SCAR FROM PREVIOUS SURGERY Assessment/Plan 28yo @ 39wks here for RLTCS Admit to L&D NPO, IVFs Ancef SCDs Risk of procedure discussed- bleeding, infection, injury to bowel/bladder/ vessels/nerves. Proceed to OR Thiago Cruz MD
[2018-09-24] MEDS ORDERED: ONDANSETRON 4 MG/2 ML VIAL IVPUSH PRN (16:38)
[2018-09-24] MEDS ORDERED: morphine SULFATE/Preservative Free 0.5 MG/ML (1cc Syringe) ONE (16:45)
[2018-09-24] MEDS ORDERED: ceFAZolin SODIUM 1 GM VIAL ONE (16:45)
[2018-09-24] MEDS ORDERED: SODIUM CHLORIDE 0.9% P/F 10 ML VIAL IJ ONE (16:45)
[2018-09-24] MEDS ORDERED: PHENYLEPHRINE HCL 10 MG/1 ML SINGLE DOSE VIAL ONE (16:58)
[2018-09-24] MEDS ORDERED: OXYTOCIN 10 UNITS/ML VIAL ONE (17:11)
[2018-09-24] MEDS ORDERED: OXYTOCIN 20 UNITS in 0.9% NS 20 UNIT/1,000 ML INFUS.BAG IV ONE (17:35)
[2018-09-24] MEDS ORDERED: METHYLERGONOVINE MALEATE 0.2 MG/1 ML AMP IM PRN (17:44)
--- NOTE | 2018-09-24 17:48 | OP ---
Operative Note - Note: Operative Date: 09/24/18 Pre-Operative Diagnosis: 39wk , Prior C/S, Desires Elective Repeat C- Section Operation: Repeat Low Transverse Findings: VFI, SWAPNA position, body nuchal, light meconium fluid, normal tubes and ovaries bilaterally. Weight 6.13lbs, Apgars 9/9 Surgeon: Swetha Cruz Gastroenterology Technician: [place] Anesthesiologist/ENVELOPE PRESS OPERATOR: Shan Terry Anesthesia: Spinal Estimated Blood Loss (mls): 700 Drains, Volume Out (mls): 50 Operative Report Dictated: Yes
[2018-09-24] MEDS ORDERED: IBUPROFEN 800 MG/8 ML IJ IVPB ONE (18:21)
[2018-09-24] MEDS: IBUPROFEN 800 MG/8 ML IJ IVPB PRN (18:24)
[2018-09-24] MEDS: morphine SULFATE/Preservative Free 0.5 MG/ML (1cc Syringe) EP ONE ×2 (21:00→23:41)
[2018-09-24] MEDS: FERROUS SO4 325 MG TABLET (FP) PO SCH (22:00)
[2018-09-25] MEDS: OXYTOCIN 20 UNITS in 0.9% NS 20 UNIT/1,000 ML INFUS.BAG IV SCH ×2 (00:26→00:27)
[2018-09-25] MEDS: IBUPROFEN 800 MG/8 ML IJ IVPB PRN (00:47)
--- NOTE | 2018-09-25 06:11 | PN ---
Post Progress Note - Subjective Subjective: Pain controlled. No fevers/chills. Type of Delivery: Repeat C/S Vital Signs: Vital Signs Temperature 98.1 F 09/25/18 02:00 Pulse Rate 95 H 09/25/18 02:00 Respiratory Rate 18 09/25/18 03:00 Blood Pressure 100/65 09/25/18 02:00 O2 Sat by Pulse Oximetry (%) 98 09/24/18 22:00 Uterus: Yes: Fundus below umbilicus Incision: Yes: Dressing dry and intact Abdomen/GI: Yes: Abdomen soft Lochia: Yes: Rubra Lochia, amount: Small Extremities: Yes: Calves non-tender Perineum: Yes: Intact Problem List - Problems (1) H/O: Code(s): Z98.891 - HISTORY OF UTERINE SCAR FROM PREVIOUS SURGERY Assessment/Plan 28yo s/p RLTCS Routine PP care OOB, ambulate Labs pending D/C [place] Anticipate d/c to home by POD#4 Thiago Cruz MD
--- NOTE | 2018-09-25 07:57 | OP ---
DATE OF OPERATION: 09/24/2018 PREOPERATIVE DIAGNOSIS: A 39-week gestation, prior section, desires elective repeat. POSTOPERATIVE DIAGNOSIS: A 39-week gestation, prior section, desires elective repeat. PROCEDURE PERFORMED: Repeat low transverse section. SURGEON: Swetha Cruz MD MEETING/EVENT PLANNER: ROSEMARIE Peters ANESTHESIA: Spinal. ESTIMATED BLOOD LOSS: 700. INTRAVENOUS FLUIDS: Per Anesthesia record. URINE OUTPUT: 50 mL. FINDINGS: A viable female infant, SWAPNA presentation, body nuchal delivered through, light meconium, Apgars 9 and 9, weight 6 pounds 13 ounces. Normal tubes and ovaries bilaterally. COMPLICATIONS: None. CONDITION: Stable to the recovery room. DESCRIPTION OF PROCEDURE: After the appropriate consents were signed, the patient was taken to the operating room, where spinal anesthesia was administered. She was placed in the supine position. The abdomen was prepped and draped in the normal sterile fashion. A Sierra catheter was inserted prior to entry into the operating room. A time-out was performed, confirming correct patient and procedure. A Pfannenstiel skin incision was made and carried through to the underlying layers until the fascia was nicked in the midline. The fascia was then extended laterally with the Bragg scissors. The inferior aspect was grasped with Amilcar clamps, tented upwards and the rectus muscles dissected off bluntly and with the Bragg scissors. Attention was then paid to the superior aspect, which was taken down in a similar fashion. The rectus muscles were bluntly in the midline. The peritoneum was entered sharply. A bladder blade was inserted. The uterus was then incised in a low transverse fashion. Light meconium fluid was noted. The hysterotomy was extended manually. The head was delivered without difficulty, as were the remaining shoulders and body. The cord was clamped and cut. The infant was handed off to the awaiting pediatric staff. The uterus was then cleared manually of placenta, clot and debris. The hysterotomy was then closed in a single layer with 1 Vicryl and a vertical imbricating Lembert stitch, with good hemostasis noted. The adnexa were inspected and noted to be normal bilaterally. The gutters were cleared of all clot and debris. The muscles were reapproximated with 2-0 chromic. The fascia was closed with 0 Vicryl. The subcutaneous tissue was closed with 3-0 plain. The skin was closed with 3-0 Vicryl. Sponge, lap and needle counts were correct x3. The patient was given Ancef at the start of the procedure. She was taken from the operating room to the recovery area in stable condition. MD ELLY CHRISTINE/[id number] MTDD
[2018-09-25 08:09] LABS: BASO % 0.3 % (0-2.0); EOS % 0.9 % (0-4.5); HEMATOCRIT 31.7 % (32.4-45.2); HEMOGLOBIN 10.7 GM/dL (10.7-15.3); MCH 28.2 pg (25.7-33.7); MCHC 33.8 g/dl (32.0-36.0); MEAN CELL VOLUME 83.3 fl (80-96); MEAN PLT VOLUME 8.9 fl (7.5-11.1); MONO % 8.5 % (3.8-10.2); NEUT % 76.3 % (42.8-82.8); PLATELET COUNT 157 K/MM3 (134-434); RDW 14.6 % (11.6-15.6); WHITE BLOOD COUNT 7.8 K/mm3 (4.0-10.0)
[2018-09-25] MEDS: FERROUS SO4 325 MG TABLET (FP) PO SCH ×2 (09:05→22:38)
[2018-09-25] MEDS: PRENATAL VITAMINS W/ FOLIC ACID TABLET (FP) PO SCH (09:06)
[2018-09-25] MEDS: IBUPROFEN 600 MG TABLET (FP) PO PRN ×4 (09:12→23:15)
[2018-09-25] MEDS: SIMETHICONE 80 MG TAB.CHEW (FP) PO PRN ×4 (09:12→23:16)
[2018-09-25] MEDS: oxyCODONE HCL 5 MG TABLET PO PRN ×4 (09:13→23:15)
--- NOTE | 2018-09-25 10:41 | PN ---
Progress Note (short form) - Note Progress Note: Anesthesia postop note 28 y/o F s/p spinal anesthesia, duramorph for section POD#1, vss, aaox3, sensory motor intact distally, no complaints No anesthesia complications.
[2018-09-25] MEDS ORDERED: BISACODYL 10 MG SUPP.RECT RC PRN (17:44)
[2018-09-26] MEDS: oxyCODONE HCL 5 MG TABLET PO PRN ×5 (03:13→23:02)
[2018-09-26] MEDS: SIMETHICONE 80 MG TAB.CHEW (FP) PO PRN ×4 (03:13→23:02)
[2018-09-26] MEDS: IBUPROFEN 600 MG TABLET (FP) PO PRN ×5 (03:13→23:02)
--- NOTE | 2018-09-26 07:59 | PN ---
Progress Note (short form) - Note Progress Note: pod 2 doing well, ,ambulating, passing gas CBC, BMP 09/25/18 06:45 Last Vital Signs Temp Pulse Resp BP Pulse Ox 98.6 F 96 H 20 128/76 98 09/25/18 22:00 09/25/18 22:00 09/25/18 23:00 09/25/18 22:00 09/24/18 22:00 abdomen soft, no distension, no cva incision dry, clean no calf tenderness lochia mild plan ambulate advance dise pain management
[2018-09-26] MEDS: PRENATAL VITAMINS W/ FOLIC ACID TABLET (FP) PO SCH (09:36)
[2018-09-26] MEDS: FERROUS SO4 325 MG TABLET (FP) PO SCH ×2 (09:36→22:08)
[2018-09-27] MEDS: IBUPROFEN 600 MG TABLET (FP) PO PRN ×6 (02:55→22:25)
[2018-09-27] MEDS: SIMETHICONE 80 MG TAB.CHEW (FP) PO PRN ×6 (02:55→22:24)
[2018-09-27] MEDS: oxyCODONE HCL 5 MG TABLET PO PRN ×6 (02:56→22:24)
[2018-09-27 06:42] LABS: BASO % 0.2 % (0-2.0); EOS % 1.4 % (0-4.5); HEMATOCRIT 28.6 % (32.4-45.2); HEMOGLOBIN 9.7 GM/dL (10.7-15.3); MCH 28.3 pg (25.7-33.7); MCHC 34.1 g/dl (32.0-36.0); MEAN CELL VOLUME 83.1 fl (80-96); MEAN PLT VOLUME 8.3 fl (7.5-11.1); MONO % 9.1 % (3.8-10.2); NEUT % 68.3 % (42.8-82.8); PLATELET COUNT 170 K/MM3 (134-434); RBC 3.44 M/mm3 (3.60-5.2); RDW 15.2 % (11.6-15.6); WHITE BLOOD COUNT 8.2 K/mm3 (4.0-10.0)
--- NOTE | 2018-09-27 08:48 | PN ---
Post Progress Note - Subjective Subjective: Pt feeling well. OOB. Tolerating diet. Ambulating Type of Delivery: Repeat C/S Vital Signs: Vital Signs Temperature 98.7 F 09/26/18 22:00 Pulse Rate 94 H 09/26/18 22:00 Respiratory Rate 20 09/26/18 22:00 Blood Pressure 124/61 09/26/18 22:00 O2 Sat by Pulse Oximetry (%) 98 09/24/18 22:00 Breast Exam: Yes: Soft Uterus: Yes: Fundus Firm Incision: Yes: Sutures intact Abdomen/GI: Yes: Abdomen soft Lochia: Yes: Rubra Lochia, amount: Small Extremities: Yes: Calves non-tender - Labs Labs: CBC WBC 8.2 K/mm3 (4.0-10.0) 09/27/18 06:00 RBC 3.44 M/mm3 (3.60-5.2) L 09/27/18 06:00 Hgb 9.7 GM/dL (10.7-15.3) L 09/27/18 06:00 Hct 28.6 % (32.4-45.2) L 09/27/18 06:00 MCV 83.1 fl (80-96) 09/27/18 06:00 MCH 28.3 pg (25.7-33.7) 09/27/18 06:00 MCHC 34.1 g/dl (32.0-36.0) 09/27/18 06:00 RDW 15.2 % (11.6-15.6) 09/27/18 06:00 Plt Count 170 K/MM3 (134-434) 09/27/18 06:00 MPV 8.3 fl (7.5-11.1) 09/27/18 06:00 Absolute Neuts (auto) 5.6 K/mm3 (1.5-8.0) 09/27/18 06:00 Neutrophils % 68.3 % (42.8-82.8) 09/27/18 06:00 Lymphocytes % 21.0 % (8-40) D 09/27/18 06:00 Monocytes % 9.1 % (3.8-10.2) 09/27/18 06:00 Eosinophils % 1.4 % (0-4.5) 09/27/18 06:00 Basophils % 0.2 % (0-2.0) 09/27/18 06:00 Nucleated RBC % 0 % (0-0) 09/27/18 06:00 Problem List - Problems (1) delivery delivered Assessment/Plan: Pt POD# 3 s/p rpt c/s feeling well plan for discharge tomorrow no heavy lifting, pelvic rest Dr. Good Code(s): O82 - ENCOUNTER FOR DELIVERY WITHOUT INDICATION
[2018-09-27] MEDS: PRENATAL VITAMINS W/ FOLIC ACID TABLET (FP) PO SCH (09:39)
[2018-09-27] MEDS: FERROUS SO4 325 MG TABLET (FP) PO SCH ×2 (09:39→21:43)
[2018-09-27] MEDS: ACETAMINOPHEN 325 MG TABLET (FP) PO PRN ×4 (11:34→22:24)
[2018-09-27] MEDS: OXYTOCIN 20 UNITS in 0.9% NS 20 UNIT/1,000 ML INFUS.BAG IV SCH (20:10)
[2018-09-28] MEDS: SIMETHICONE 80 MG TAB.CHEW (FP) PO PRN ×2 (03:38→08:52)
[2018-09-28] MEDS: oxyCODONE HCL 5 MG TABLET PO PRN ×2 (03:38→08:51)
[2018-09-28] MEDS: ACETAMINOPHEN 325 MG TABLET (FP) PO PRN ×2 (03:40→08:50)
[2018-09-28] MEDS: IBUPROFEN 600 MG TABLET (FP) PO PRN ×2 (03:40→08:51)
[2018-09-28] MEDS: FERROUS SO4 325 MG TABLET (FP) PO SCH (10:18)
[2018-09-28] MEDS: PRENATAL VITAMINS W/ FOLIC ACID TABLET (FP) PO SCH (10:18)
[2018-09-28 10:42] VITALS: BP 115/74; PULSE 94; TEMP 97.9
--- NOTE | 2018-10-01 17:48 | PATH ---
Surgical Pathology Report Patient Name: XAVI MCCAIN Med. Rec. #: [id number] /Age/Gender: 1990 (Age: 28) / F Account: [id number] Location: [facility] OBS/BUSINESS DEVELOPMENT INTERN Taken: 09/24/2018 Received: 09/25/2018 Reported: 10/01/2018 Physicians: Swetha Cruz Specimen(s) Received PLACENTA Clinical History Final Diagnosis PLACENTA, SECTION: 510 G THIRD TRIMESTER PLACENTA WITH TRIVASCULAR UMBILICAL CORD AND UNREMARKABLE PLACENTAL MEMBRANES. Electronically Signed Racheal Edge M.D. Gross Description The specimen is received fresh labeled placenta and is a 510 gram, 16.5 x 16.0 x 2.8 cm. placenta with attached membranes and umbilical cord. The attached membranes are dickens, translucent with focal opacities and insert marginally. The umbilical cord measures 36 cm. in length and averages 1.0 cm. in diameter. The cord inserts eccentrically, 4 cm. to the nearest margin. No true knots or strictures are identified. Cut surface of the umbilical cord reveals 3 vessels. The surface is persaud blue with moderate fibrin deposition and appropriate caliber vessels. The maternal surface is red-brown with focal defects. Sectioning reveals red-brown, spongy parenchyma. No lesions are identified. Physiology Teacher sections are submitted in three cassettes as follows: 1- membrane rolls and umbilical cord; 2-3- full thickness sections of placenta. /09/30/2018 saudi09/30/2018
== END 2018-09-28 12:45 | disposition home or self-care (01) | DRG 788 ==
LOC: JLDR 14:05 → J3W 20:00
PROVIDERS: ADMIT Obstetrics & Gynecology; ATTEND Obstetrics & Gynecology
PROC: 10D00Z1 Extraction of Products of Conception, Low, Open Approach (ICD-10-PCS; principal; 2018-09-24)
DX: O34.211 Maternal care for low transverse scar from previous cesarean delivery (principal); Z3A.39 39 weeks gestation of pregnancy; Z37.0 Single live birth
CPT/HCPCS: 36415; 85025; 86593; 88307-TC